=== PATIENT | female | born 1975 | race Caucasian/White ===

== ENCOUNTER 2017-11-07 08:31 | Emergency (ER) | payer MEDICAID ==
[~2017-11-07] VITALS: Ht 172.7 cm; Wt 60.0 kg
[~2017-11-07 08:31] MED LIST: BENADRYL 50MG C50 MG OR; BENTYL20 MG OR; CIPROFLOXACN500 MG PO; FLEXERIL OR; FLEXERIL PO; FLEXERIL10 MG PO; FLEXERIL5 MG PO; GABAPENTIN100 MG PO; HYDROCODONE/ACE1 TAB PO; K-DUR/KLOR-CON20 MEQ PO; LORTAB 1010 MG PO; LORTAB 5/3255 MG PO; LORTAB 7.5 OR; MACROBID100 MG OR; METRONIDAZOL500 MG PO; NEURONTIN100 MG PO; NORCO1 TA1 PO; ONDANSETRON4 MG OR; PRENATA6 OR; PRENATAL1 TAB OR; PREVACID30 M2 OR; PRILOSEC20 MG OR; PRILOSEC40 MG OR; TIZANIDINE4 MG PO; ULTRAM50 M1 OR; VISTARIL50 MG OR; ZOFRAN ODT4 MG OR
[2017-11-07] MEDS ORDERED: TRAZODONE50 MG PO (09:35)
[2017-11-07] MEDS ORDERED: SLEEP MEDICATION (09:36)
[2017-11-07 10:02] LABS: URINE BILIRUBIN - DIPSTICK NEGATIVE (NEGATIVE); URINE BLOOD DIPSTICK NEGATIVE (NEGATIVE); URINE COLOR YELLOW; URINE GLUCOSE - DIPSTICK NEGATIVE (NEGATIVE); URINE KETONE NEGATIVE (NEGATIVE); URINE LEUK ESTERASE NEGATIVE (NEGATIVE); URINE NITRITE - DIPSTICK NEGATIVE (Negative); URINE PH 6.5 (4.5-8.0); URINE PROTEIN - DIPSTICK TRACE mg/dL (NEG-TRACE); URINE SPECIFIC GRAVITY 1.025; URINE UROBILINOGEN - DIPSTICK 0.2 E.U./dL (0.2)
[2017-11-07 10:04] LABS: URINE CLARITY CLEAR
[2017-11-07 11:13] LABS: HEMATOCRIT 40.2 % (37.0-47.0); HEMOGLOBIN 13.2 g/dl (12.0-16.0); IMMATURE GRANULOCYTES 0.2 % (0.0-1.0); MEAN CELL VOLUME 89.9 fL CALC (80.0-100.0); MEAN CORPUSCULAR HGB 29.5 pG CALC (26.0-32.0); MEAN CORPUSCULAR HGB CONC 32.8 g/L CALC (32.0-36.0); NEUT# 6.22 thou/uL (2.00-7.15); RED BLOOD COUNT 4.47 mill/uL (4.20-5.60); RED CELL DISTRI WIDTH 12.1 % (11.5-15.5)
[2017-11-07 11:20] LABS: ALKALINE PHOSPHATASE 80 u/l (38-126); ANION GAP 13 (6-22 (CALC)); BILIRUBIN, TOTAL 0.3 mg/dL (0.0-1.4); BUN 11 mg/dL (7-17); BUN/CREATININE RATIO 14 (12-20 (CALC)); CALCIUM 9.3 mg/dL (8.4-10.2); CARBON DIOXIDE 28 mmol/l (22-30); CHLORIDE 105 mmol/l (95-108); CREATININE 0.8 mg/dL (0.5-1.0); GFR > 60 ML/MIN (>=60 (CALC)); GFR FOR AFR.AMER. > 60 ML/MIN (>=60 (CALC)); GLUCOSE 83 mg/dL (65-105); POTASSIUM 3.6 mmol/l (3.5-5.1); SGOT/AST 25 u/l (14-36); SGPT/ALT 18 u/l (9-52); SODIUM 142 mmol/l (137-146); TOTAL PROTEIN 6.8 g/dL (6.3-8.2)
[2017-11-07] MEDS ORDERED: FLEXERIL PO (17:41)
[2017-11-07] MEDS ORDERED: NAPROSYN500 MG PO (17:41)
[2017-11-07 17:50] VITALS: BP 110/52
== END 2017-11-07 17:50 | disposition home or self-care (01) | DRG 552 ==
LOC: ED 08:31
PROVIDERS: Emergency Medicine
DX: M54.5 Low back pain (principal); G89.29 Other chronic pain; R32 Unspecified urinary incontinence; R11.10 Vomiting, unspecified

== ENCOUNTER 2018-04-07 18:53 | Emergency (ER) | payer MEDICAID ==
[~2018-04-07] VITALS: Ht 172.7 cm; Wt 61.0 kg
[~2018-04-07 18:53] MED LIST changes: +NAPROSYN500 MG PO; +SLEEP MEDICATION; +TRAZODONE50 MG PO
[2018-04-07 19:59] LABS: URINE BILIRUBIN - DIPSTICK NEGATIVE (NEGATIVE); URINE BLOOD DIPSTICK NEGATIVE (NEGATIVE); URINE COLOR YELLOW; URINE GLUCOSE - DIPSTICK NEGATIVE (NEGATIVE); URINE KETONE NEGATIVE (NEGATIVE); URINE LEUK ESTERASE NEGATIVE (NEGATIVE); URINE NITRITE - DIPSTICK NEGATIVE (Negative); URINE PH 5.5 (4.5-8.0); URINE PROTEIN - DIPSTICK NEGATIVE (NEG-TRACE); URINE SPECIFIC GRAVITY >=1.030; URINE UROBILINOGEN - DIPSTICK 0.2 E.U./dL (0.2)
[2018-04-07 20:02] LABS: URINE CLARITY CLEAR
[2018-04-07] MEDS ORDERED: FIORICET PO (20:35)
[2018-04-07 21:25] VITALS: BP 106/64
== END 2018-04-07 21:26 | disposition home or self-care (01) | DRG 103 ==
LOC: ED 18:53
PROVIDERS: Emergency Medicine
DX: R51 Headache (principal); N64.4 Mastodynia; F17.210 Nicotine dependence, cigarettes, uncomplicated; R01.1 Cardiac murmur, unspecified; K22.70 Barrett's esophagus without dysplasia; I25.2 Old myocardial infarction; Z86.73 Personal history of transient ischemic attack (TIA), and cerebral infarction without residual deficits; Z87.442 Personal history of urinary calculi

== ENCOUNTER 2018-05-04 18:30 | Emergency (ER) | payer OTHER ==
[~2018-05-04] VITALS: Ht 172.7 cm; Wt 60.6 kg
[~2018-05-04 18:30] MED LIST changes: +FIORICET PO
[2018-05-04] MEDS ORDERED: IBUPROFEN600 MG PO (19:04)
[2018-05-04] MEDS ORDERED: FLEXERIL PO (19:05)
[2018-05-04] MEDS ORDERED: CLONAZEPAM0.5 M1 PO (19:05)
[2018-05-04] MEDS ORDERED: IMITREX100 M1 PO (19:06)
[2018-05-04] MEDS ORDERED: BENADRYL 25MG C25 MG PO (19:07)
[2018-05-04 19:45] LABS: URINE BILIRUBIN - DIPSTICK NEGATIVE (NEGATIVE); URINE BLOOD DIPSTICK NEGATIVE (NEGATIVE); URINE COLOR YELLOW; URINE GLUCOSE - DIPSTICK NEGATIVE (NEGATIVE); URINE KETONE NEGATIVE (NEGATIVE); URINE LEUK ESTERASE NEGATIVE (NEGATIVE); URINE NITRITE - DIPSTICK NEGATIVE (Negative); URINE PH 5.5 (4.5-8.0); URINE PROTEIN - DIPSTICK NEGATIVE (NEG-TRACE); URINE UROBILINOGEN - DIPSTICK 0.2 E.U./dL (0.2)
[2018-05-04 19:53] LABS: HEMATOCRIT 39.9 % (37.0-47.0); HEMOGLOBIN 13.1 g/dl (12.0-16.0); IMMATURE GRANULOCYTES 0.2 % (0.0-1.0); MEAN CELL VOLUME 87.9 fL CALC (80.0-100.0); MEAN CORPUSCULAR HGB 28.9 pG CALC (26.0-32.0); MEAN CORPUSCULAR HGB CONC 32.8 g/L CALC (32.0-36.0); NEUT# 3.91 thou/uL (2.00-7.15); RED BLOOD COUNT 4.54 mill/uL (4.20-5.60); RED CELL DISTRI WIDTH 12.5 % (11.5-15.5)
[2018-05-04 19:54] LABS: URINE CLARITY CLEAR
[2018-05-04 20:23] LABS: ALBUMIN 4.1 g/dL (3.2-5.0); ALKALINE PHOSPHATASE 76 u/l (38-126); ANION GAP 12 (6-22 (CALC)); BILIRUBIN, TOTAL 0.4 mg/dL (0.0-1.4); BUN 12 mg/dL (7-17); BUN/CREATININE RATIO 18 (12-20 (CALC)); CARBON DIOXIDE 27 mmol/l (22-30); CHLORIDE 107 mmol/l (95-108); CREATININE 0.7 mg/dL (0.5-1.0); GFR > 60 ML/MIN (>=60 (CALC)); GFR FOR AFR.AMER. > 60 ML/MIN (>=60 (CALC)); SGOT/AST 26 u/l (14-36); SGPT/ALT 38 u/l (9-52); SODIUM 142 mmol/l (137-146); TOTAL PROTEIN 7.3 g/dL (6.3-8.2)
[2018-05-04 20:35] LABS: MYOGLOBIN 15 ng/mL (0 - 62)
[2018-05-04] MEDS ORDERED: ULTRAM50 M1 PO (21:50)
[2018-05-04 21:57] VITALS: BP 130/69
== END 2018-05-04 21:59 | disposition home or self-care (01) | DRG 556 ==
LOC: ED 18:30
PROVIDERS: Emergency Medicine
DX: M79.1 Myalgia (principal); M54.9 Dorsalgia, unspecified; R07.81 Pleurodynia; R50.9 Fever, unspecified; R05 Cough; I25.2 Old myocardial infarction; F17.210 Nicotine dependence, cigarettes, uncomplicated; Z86.73 Personal history of transient ischemic attack (TIA), and cerebral infarction without residual deficits; Z87.442 Personal history of urinary calculi

== ENCOUNTER 2019-08-29 20:28 | Emergency (ER) | payer OTHER ==
[~2019-08-29] VITALS: Ht 172.7 cm; Wt 71.0 kg
[~2019-08-29 20:28] MED LIST changes: +BENADRYL 25MG C25 MG PO; +CLONAZEPAM0.5 M1 PO; +IBUPROFEN600 MG PO; +IMITREX100 M1 PO; +ULTRAM50 M1 PO
[2019-08-29 21:15] LABS: URINE BILIRUBIN - DIPSTICK NEGATIVE (NEGATIVE); URINE BLOOD DIPSTICK NEGATIVE (NEGATIVE); URINE COLOR YELLOW; URINE GLUCOSE - DIPSTICK NEGATIVE (NEGATIVE); URINE KETONE NEGATIVE (NEGATIVE); URINE LEUK ESTERASE NEGATIVE (NEGATIVE); URINE NITRITE - DIPSTICK NEGATIVE (Negative); URINE PROTEIN - DIPSTICK NEGATIVE (NEG-TRACE); URINE SPECIFIC GRAVITY 1.015; URINE UROBILINOGEN - DIPSTICK 0.2 E.U./dL (0.2)
[2019-08-29 21:16] LABS: IMMATURE GRANULOCYTES 0.3 % (0.0-5.0); MEAN CELL VOLUME 90.3 fL CALC (80.0-100.0); MEAN CORPUSCULAR HGB 28.6 pG CALC (26.0-32.0); MEAN CORPUSCULAR HGB CONC 31.6 g/L CALC (32.0-36.0); NEUT# 7.34 thou/uL (2.00-7.15); RED BLOOD COUNT 3.71 mill/uL (4.20-5.60); RED CELL DISTRI WIDTH 14.6 % (11.5-15.5)
[2019-08-29 21:18] LABS: HEMATOCRIT 33.5 % (37.0-47.0); HEMOGLOBIN 10.6 g/dl (12.0-16.0)
[2019-08-29 21:27] LABS: ALBUMIN 3.6 g/dL (3.2-5.0); ANION GAP 12 (6-22 (CALC)); BILIRUBIN, TOTAL 0.3 mg/dL (0.0-1.4); BUN 13 mg/dL (7-17); BUN/CREATININE RATIO 17 (12-20 (CALC)); CARBON DIOXIDE 26 mmol/l (22-30); CHLORIDE 105 mmol/l (95-108); CREATININE 0.8 mg/dL (0.5-1.0); GFR > 60 ML/MIN (>=60 (CALC)); GFR FOR AFR.AMER. > 60 ML/MIN (>=60 (CALC)); LIPASE 72 u/l (23-300); POTASSIUM 4.1 mmol/l (3.5-5.1); SGOT/AST 44 u/l (14-36); SODIUM 139 mmol/l (137-146); TOTAL PROTEIN 6.4 g/dL (6.3-8.2)
[2019-08-29 21:28] LABS: BARBITURATES NEGATIVE (NEGATIVE); COCAINE NEGATIVE (NEGATIVE); METHADONE NEGATIVE (NEGATIVE); TETRAHYDROCANNABIONOL NEGATIVE (NEGATIVE); TRICYLIC ANTIDEPRESSANTS NEGATIVE (NEGATIVE)
[2019-08-29 21:29] LABS: OXCYCODONE POSITIVE (NEGATIVE)
[2019-08-29 21:41] LABS: ALKALINE PHOSPHATASE 132 u/l (38-126); AMYLASE < 30 u/l (30-110)
[2019-08-29 21:57] LABS: TSH, 3RD GENERATION 0.31 uIU/mL (0.47 - 4.68)
[2019-08-29 23:45] VITALS: BP 111/57
== END 2019-08-29 23:38 | disposition home or self-care (01) ==
LOC: ED 20:28
PROVIDERS: Family Medicine
DX: R16.2 Hepatomegaly with splenomegaly, not elsewhere classified (principal); K76.6 Portal hypertension; I25.2 Old myocardial infarction; F17.200 Nicotine dependence, unspecified, uncomplicated; Z86.73 Personal history of transient ischemic attack (TIA), and cerebral infarction without residual deficits
CPT/HCPCS: Q9967